=== PATIENT | female | born 1990 | race American Indian/Alaskan Native ===

== ENCOUNTER 2018-11-14 02:08 | Emergency (ER) | payer SELFPAY ==
[2018-11-14] MEDS ORDERED: FLEXERIL PO ONE (04:26)
[2018-11-14] MEDS ORDERED: MOTRIN PO ONE (04:26)
[2018-11-14] MEDS ORDERED: ZITHROMAX PO ONE (04:26)
[2018-11-14] MEDS ORDERED: ROCEPHIN IM ONE (04:27)
[2018-11-14] MEDS ORDERED: XYLOCAINE 1% MPF 5 mL ONE (04:34)
[2018-11-14 04:59] LABS: Bilirubin,Urine NEG (Negative); Blood,Urine SM (Negative); Calcium Oxalate Crystals,Urine 3+; Color,Urine Yellow (Yellow); Mucus,Urine 3+ /HPF
[2018-11-14 05:02] LABS: HCG Qualitative,Urine Negative (Negative)
--- NOTE | 2018-11-14 05:07 | Emergency Department Report ---
ED Female HPI - General Chief complaint: Urogenital-Female Stated complaint: GROIN PAIN Time Seen by Provider: 11/14/18 03:40 Source: patient Mode of arrival: Ambulatory Limitations: No Limitations - History of Present Illness Initial comments: Pt is a 28 yo female who presents to the ED with c/o vaginal discharge that began two weeks ago. She describes the discharge as yellow. She has associated dysuria and vaginal itching. The patient states she had unprotected intercourse two weeks ago. She denies any lesions, blistering. The patient states she also has right groin pain. She believes when she was having intercourse she "pulled a muscle." The patient denies any fever, N/V, or abdominal pain. - Related Data Previous Rx's Medication Instructions Recorded Last Taken Type Ciprofloxacin HCl [Ciprofloxacin 500 mg PO BID 7 Days #14 tablet 11/14/18 Unknown Rx TAB] Cyclobenzaprine [Flexeril] 10 mg PO DAILY PRN #10 tablet 11/14/18 Unknown Rx Ibuprofen 600 mg PO Q6HR #20 tablet 11/14/18 Unknown Rx metroNIDAZOLE [Flagyl] 500 mg PO BID 7 Days #14 tab 11/14/18 Unknown Rx Allergies Allergy/AdvReac Type Severity Reaction Status Date / Time No Known Allergies Allergy Unverified 11/14/18 02:56 ED Review of Systems ROS: Stated complaint: GROIN PAIN Other details as noted in HPI Comment: All other systems reviewed and negative ED Past Medical Hx - Past Medical History Previous Medical History?: No - Surgical History Past Surgical History?: No - Social History Smoking Status: Never Smoker Substance Use Type: Alcohol - Medications Home Medications: Home Medications Medication Instructions Recorded Confirmed Last Taken Type Ciprofloxacin HCl [Ciprofloxacin 500 mg PO BID 7 Days #14 tablet 11/14/18 Unknown Rx TAB] Cyclobenzaprine [Flexeril] 10 mg PO DAILY PRN #10 tablet 11/14/18 Unknown Rx Ibuprofen 600 mg PO Q6HR #20 tablet 11/14/18 Unknown Rx metroNIDAZOLE [Flagyl] 500 mg PO BID 7 Days #14 tab 11/14/18 Unknown Rx ED Physical Exam - General Limitations: No Limitations General appearance: alert, in no apparent distress - Head Head exam: Present: atraumatic, normocephalic - Eye Eye exam: Present: normal appearance - ENT ENT exam: Present: mucous membranes moist - Respiratory Respiratory exam: Present: normal lung sounds bilaterally. Absent: respiratory distress, wheezes, rales, rhonchi, stridor, chest wall tenderness, accessory muscle use, decreased breath sounds, prolonged expiratory - Cardiovascular Cardiovascular Exam: Present: regular rate, normal rhythm, normal heart sounds. Absent: systolic murmur, rubs, gallop - GI/Abdominal GI/Abdominal exam: Present: soft, normal bowel sounds. Absent: distended, tenderness, guarding, rebound, rigid - External exam: Present: normal external exam, other (DARRIN gallardo present during examination ). Absent: erythema, swelling, lesions, lacerations, ecchymosis Speculum exam: Present: vaginal discharge (white/yellow), cervical discharge (white/yellow), other (erythema of the cervix) Bi-manual exam: Present: normal bi-manual exam. Absent: cervical motion tendernes, adnexal tenderness, adnexal mass, uterine enlargement, uterine tenderness - Extremities Exam Extremities exam: Present: other (tenderness to palpation over the right inguinal canal and with movement of the RLE, has FROM with discomfort) ED Course Vital Signs 11/14/18 11/14/18 11/14/18 02:33 02:56 05:26 Temperature 98.4 F 99 F 98.3 F Pulse Rate 115 H 120 H 82 Respiratory 16 18 17 Rate Blood Pressure 160/101 160/101 Blood Pressure 146/99 [Left] O2 Sat by Pulse 100 100 99 Oximetry ED Medical Decision Making - Lab Data Laboratory Results - last 24 hr 11/14/18 04:12 Urine Color Yellow Urine Turbidity Cloudy Urine pH 5.0 Ur Specific [place] 1.036 H Urine Protein 30 mg/dl Urine Glucose (UA) Neg Urine Ketones Tr Urine Blood Sm Urine Nitrite Neg Urine Bilirubin Neg Urine Urobilinogen 2.0 Ur Leukocyte Esterase Lg Urine WBC (Auto) 123.0 H Urine RBC (Auto) 54.0 U Epithel Cells (Auto) 7.0 Calcium Oxalate Crystal 3+ Urine Mucus 3+ Urine HCG, Qual Negative Microbiology 11/14/18 04:25 Wet Prep - Final Cervix Microbiology 11/14/18 04:25 Cervix Wet Prep - Final Vital Signs 11/14/18 11/14/18 11/14/18 02:33 02:56 05:26 Temperature 98.4 F 99 F 98.3 F Pulse Rate 115 H 120 H 82 Respiratory 16 18 17 Rate Blood Pressure 160/101 160/101 Blood Pressure 146/99 [Left] O2 Sat by Pulse 100 100 99 Oximetry - Medical Decision Making Pt presents with vaginal discharge after having unprotected sexual intercourse. Pt swabbed and treated for G/C. Pt wet prep shows clue cells and trichomonas. UA shows many WBCs, will tx for UTI. Pt given prescription for flagyl and cipro. Advised pt do not drink while taking the medication. Advised pt if concerned for other STDs to be seen by PCP, photoengraving finisher, or health department. Advised to have partner tested and treated. Advised pt not to engage in sexual intercourse for 10 days. Pt also has right groin pain from a groin strain. Will give anti inflammatory and short course of muscle relaxer. Advised to only take muscle relaxer at night as needed for muscle spasms and do not drive or operate heavy machinery. Will need to follow up with PCP and local truck driver in the next 2-3 days. Return to the ED for any new or worsening symptoms. - Differential Diagnosis STD, Yeast infection, UTI, BV Critical care attestation.: If time is entered above; I have spent that time in minutes in the direct care of this critically ill patient, excluding procedure time. ED Disposition Clinical Impression: Bacterial vaginosis, Trichomonas infection, Strain of muscle of right groin region UTI (urinary tract infection) Qualifiers: Urinary tract infection type: acute cystitis Hematuria presence: without hematuria Qualified Code(s): N30.00 - Acute cystitis without hematuria Disposition: - TO HOME OR SELFCARE Is pt being admited?: No Does the pt Need Aspirin: No Condition: Stable Instructions: Bacterial Vaginosis (ED), Safe Sex (ED), Muscle Strain (ED), Trichomoniasis (ED), Urinary Tract Infection in Women (ED), Groin Strain (ED) Additional Instructions: Follow up with primary care provider and local truck driver in the next 2-3 days. Take all medication as prescribed. Do not drink alcohol while taking medication. If concerned about other STDs such as syphilis, HIV, herpes, etc be seen by primary care, local truck driver, or health department. Partner needs to be tested and treated as well. Do not engage in sexual intercourse until completion of medications. Return to the emergency room for any new or worsening symptoms. Prescriptions: Ciprofloxacin HCl [Ciprofloxacin TAB] 500 mg PO BID 7 Days #14 tablet metroNIDAZOLE [Flagyl] 500 mg PO BID 7 Days #14 tab Cyclobenzaprine [Flexeril] 10 mg PO DAILY PRN #10 tablet PRN Reason: Muscle Spasm Ibuprofen 600 mg PO Q6HR #20 tablet Referrals: AARON KAY MD [Primary Care Provider] - 3-5 Days Forms: STI Treatment and Prevention Time of Disposition: 05:16 Print Language: SLOVENIAN
[2018-11-14] MEDS ORDERED: XYLOCAINE 1% MPF 5 mL INFILTRATI ONE (05:26)
[2018-11-14 05:44] VITALS: BP 146/99
== END 2018-11-14 05:26 | disposition home or self-care (01) ==
LOC: ED 02:08
DX: S39.011A Strain of muscle, fascia and tendon of abdomen, initial encounter (principal); N30.00 Acute cystitis without hematuria; N76.0 Acute vaginitis; A59.01 Trichomonal vulvovaginitis; X58.XXXA Exposure to other specified factors, initial encounter; Y93.89 Activity, other specified; Y92.89 Other specified places as the place of occurrence of the external cause; Y99.8 Other external cause status
CPT/HCPCS: 81001; 81025; 87210; 87591; 96372; 99284; J0696